=== PATIENT | male | born 1940 | race Caucasian/White ===

== ENCOUNTER 2021-04-07 11:08 | Day surgery (SDC) | payer MEDICARE ==
[~2021-04-07] VITALS: Ht 170.2 cm; Wt 87.6 kg
[2021-04-07 11:45] VITALS: BP 154/75
[2021-04-07] MEDS ORDERED: METF-1203 PO (12:15)
[2021-04-07] MEDS ORDERED: ATOR40TA72 (12:15)
[2021-04-07] MEDS ORDERED: GLIM4TAB7 PO (12:15)
[2021-04-07] MEDS ORDERED: CITA20TA28 PO (12:15)
[2021-04-07] MEDS ORDERED: MECO10006 (12:15)
[2021-04-07] MEDS ORDERED: LISI20TA28 PO (12:15)
[2021-04-07 12:26] LABS: BASOPHILS % (AUTO) 0.6 % (0-1); EOSINOPHILS # (AUTO) 0.1 X10'3 (0-0.9); EOSINOPHILS % (AUTO) 2.1 % (0-6); HEMATOCRIT 38.4 % (42.0-52.0); HEMOGLOBIN 13.1 g/dl (14.0-17.9); LYMPHOCYTES # (AUTO) 1.4 X10'3 (1.1-4.8); LYMPHOCYTES % (AUTO) 21.7 % (21-51); MEAN CORPUSCULAR HEMOGLOBIN 31.1 PG (27.0-31.0); MEAN CORPUSCULAR VOLUME 91.5 FL (78-98); MEAN PLATELET VOLUME 7.9 FL (7.4-10.4); MONOCYTES # (AUTO) 0.6 X10'3 (0-0.9); MONOCYTES % (AUTO) 9.1 % (2-12); NEUTROPHILS # (AUTO) 4.3 X10'3 (1.8-7.7); NEUTROPHILS % (AUTO) 66.5 % (42-75); PLATELET COUNT 270 X10'3 (140-440); RED CELL DISTRIBUTION WIDTH 14.4 % (11.5-14.5); WHITE BLOOD COUNT 6.5 X10'3 (4.5-11.0)
[2021-04-07 12:35] LABS: ALBUMIN 4.1 G/DL (3.4-5.0); ANION GAP 11 (8-16); BLOOD UREA NITROGEN 22 MG/DL (7-18); BUN/CREATININE RATIO 15.5 (5.4-32.0); CALCIUM 9.6 MG/DL (8.5-10.1); CHLORIDE 103 MMOL/L (99-107); CREATININE 1.42 MG/DL (0.60-1.10); GLUCOSE 192 MG/DL (70-104); MAGNESIUM 1.6 MG/DL (1.5-2.4); POTASSIUM 4.6 MMOL/L (3.5-5.1); SODIUM 138 MMOL/L (135-145); TOTAL CARBON DIOXIDE 23.6 MMOL/L (24-32); eGFR 48 ML/MIN
[2021-04-07] MEDS ORDERED: fentaNYL/PF 50MCG/1 ML 2ML syringe ONE (13:17)
[2021-04-07] MEDS ORDERED: LIDOcaine 1% w/EPI 1:100,000 30ml vial (MDV) ONE (13:17)
[2021-04-07] MEDS ORDERED: midazolam 1 mg/ML 2ml injection ONE ×2 (13:17→13:37)
[2021-04-07 14:10] VITALS: BP 154/80
[2021-04-07 14:15] VITALS: BP 166/67
[2021-04-07 14:30] VITALS: BP 138/67
[2021-04-07 14:45] VITALS: BP 123/66
[2021-04-07 15:00] VITALS: BP 119/60
== END 2021-04-07 15:55 | disposition home or self-care (01) ==
LOC: SSTAY O 11:08
PROVIDERS: ATTEND Internal Medicine Cardiovascular Disease
DX: R55 Syncope and collapse (principal); I25.10 Atherosclerotic heart disease of native coronary artery without angina pectoris; E11.9 Type 2 diabetes mellitus without complications; E78.00 Pure hypercholesterolemia, unspecified; I10 Essential (primary) hypertension; J45.909 Unspecified asthma, uncomplicated; Z95.5 Presence of coronary angioplasty implant and graft; Z79.899 Other long term (current) drug therapy; Z79.84 Long term (current) use of oral hypoglycemic drugs; Z87.891 Personal history of nicotine dependence
CPT/HCPCS: 33285; 36415; 80048; 83735; 85025; 85610; 93005; 99152; C1764; J2250; J3010; J3490; A4620; A6258